=== PATIENT | female | born 1950 | race Caucasian/White ===

== ENCOUNTER → 2022-02-01 | Outpatient (CLI) | payer MEDICARE ==
--- NOTE | 2022-02-01 17:17 | CARD ---
MR#: [id number] Date of Study: 02/01/2022 Ordering Physician: PRUDENCE MAYER, Referring Physician: PRUDENCE MAYER, Tech: Kyrie Gallardo RUST APPROVED REPORT EXAM: Two-dimensional and M-mode echocardiogram with Doppler and color Doppler. Other Information Quality : AverageHR: 80bpm Rhythm : NSR INDICATION Paroxysmal atrial fibrillation Surgery/Intervention Pacemaker: 2D DIMENSIONS Left Atrium(2D)3.3 (1.6-4.0cm)IVSd1.1 (0.7-1.1cm) Aortic Root(2D)2.7 (2.0-3.7cm)LVDd3.6 (3.9-5.9cm) LVOT Diameter1.9 (1.8-2.4cm)PWd1.1 (0.7-1.1cm) LA Qhefzz77 (18-58mL)LVDs2.1 (2.5-4.0cm) FS (%) 41.8 %SV38.9 ml LVEF(%)73.7 (>50%) Aortic Valve AoV Peak Jose.137.5cm/sAoV VTI27.6cm AO Peak GR.7.6mmHgLVOT Peak Jose.95.2cm/s LVOT VTI 20.39cmAO Mean GR.4mmHg JOE (VMAX)1.85of9ETR (VTI)1.99cm2 Mitral Valve MV E Bctglvgr97.3cm/sMV E Peak Gr.6mmHg MV DECEL [id number] A Ffrfwjjj34.4cm/s MV E Mean Gr.2mmHgE/A Ratio1.4 Pulmonary Valve PV Peak Suaxalnt87.6cm/sPV Peak Grad.3mmHg Tricuspid Valve TR P. Ukggjkxk684ey/sTR Peak Gr.23mmHg Pulmonary Vein S1 Pdrohpek69.7cm/sD2 Nxzwzpfw66.3cm/s LEFT VENTRICLE The left ventricle is normal size. There is normal left ventricular wall thickness. The left ventricu lar systolic function is normal and the ejection fraction is within normal range. EF 55% There is nor mal LV segmental wall motion. Transmitral Doppler flow pattern is Grade II-pseudonormal filling dynam ics. No left ventricle thrombus noted on this study. There is no ventricular septal defect visualized . There is no left ventricular aneurysm. There is no mass noted in the left ventricle. RIGHT VENTRICLE The right ventricle is normal size. There is normal right ventricular wall thickness. The right ventr icular systolic function is normal. Pacemaker wire noted in the right ventricle. ATRIA The left atrium size is normal. The right atrium size is normal. The interatrial septum is intact wit h no evidence for an atrial septal defect or patent foramen ovale as noted on 2-D or Doppler imaging. AORTIC VALVE The aortic valve is normal in structure and function. Doppler and Color Flow revealed no significant aortic regurgitation. There is no significant aortic valvular stenosis. There is no aortic valvular v egetation. MITRAL VALVE The mitral valve is thickened but opens well. There is no evidence of mitral valve prolapse. There is no mitral valve stenosis. Doppler and Color-flow revealed mild mitral regurgitation. TRICUSPID VALVE The tricuspid valve is normal in structure and function. Doppler and Color Flow revealed trace tricus pid regurgitation. There is no tricuspid valve prolapse or vegetation. There is no tricuspid valve st enosis. PULMONIC VALVE Doppler and Color Flow revealed no pulmonic valvular regurgitation. There is no pulmonic valvular katja nosis. GREAT VESSELS The aortic root is normal in size. The ascending aorta is normal in size. The IVC is normal in size a nd collapses >50% with inspiration. PERICARDIAL EFFUSION There is no pleural effusion. There is no evidence of significant pericardial effusion. Critical Notification Critical Value: No <Conclusion> The left ventricular systolic function is normal and the ejection fraction is within normal range. EF 55% There is normal LV segmental wall motion. Pacemaker wire noted in the right ventricle. Signed by : Leonardo Kothari, Electronically Approved : 02/01/2022 17:16:38
== END ==
LOC: ECHO 07:47
PROVIDERS: ATTEND Internal Medicine Cardiovascular Disease
DX: I34.0 Nonrheumatic mitral (valve) insufficiency (principal); R00.0 Tachycardia, unspecified
CPT/HCPCS: 93306